=== PATIENT | female | born 1980 | race Caucasian/White ===

== ENCOUNTER → 2024-05-23 | Outpatient (REF) | payer OTHER ==
[~2024-05-23] MED LIST: APRISO0.375 GM PO; CALCIUM PO; DIATRIZOATE MEGL/DIATRIZOA SOD 30 ML BTL PO ONE; FOLIC ACID PO; IOPAMIDOL 370 MG/ML 100 ML INFUS..BTL INJ ONE; LECITHIN PO; MULTI-VITAMIN1 EACH PO; VITAMIN D PO
== END ==
LOC: CT 08:07
PROVIDERS: ATTEND Internal Medicine Gastroenterology
DX: K63.89 Other specified diseases of intestine (principal)
CPT/HCPCS: 74177; Q9963; Q9967